=== PATIENT | female | born 1995 | race Caucasian/White ===

== ENCOUNTER 2019-04-09 14:25 | Emergency (ER) | payer MEDICAID ==
[~2019-04-09] VITALS: Ht 142.2 cm; Wt 45.4 kg
--- NOTE | 2019-04-09 14:58 | NUR ---
ED Nurse Note: Pt walked into ED w/ parents. Pt fell at 1200 today and has chin skin tear. Red, scant sanguineous drainage. Pt pain is 5/10. Pt is mentally retarded. Pt only says "ya" when asked most questions. Pt is smiling and talkative.
[2019-04-09 15:00] VITALS: BP 124/76
--- NOTE | 2019-04-09 15:38 | Emergency Room Report ---
History of Present Illness General Chief Complaint: Multiple Trauma/Fall Source: Family Member Present Illness HPI 24-year-old female with history of autism and seizures here with parents, combative, due to a deep laceration to chin after falling the street earlier today. Patient is up-to-date with tetanus shot. Patient needs sutures. I offered we can put the patient under ketamine and apply sutures however both mom and dad reported that patient will later pulled the sutures out. They asked for Dermabond even though I explained that Dermabond will not close the laceration completely. Patient to be on antibiotics. Patient can open and close jaw without any problem. Bleeding noted. No other injuries noted. Patient is not at this time. Allergies: Coded Allergies: No Known Allergies (Unverified , 04/09/19) Patient History Past Medical History: see triage record Past Surgical History: none Pertinent Family History: none Last Menstrual Period: 04/03/19 Now: No Immunizations: UTD Reviewed Nursing Documentation: PMH: Agreed; PSxH: Agreed Nursing Documentation-PMH Past Medical History: No History, Except For Hx Cardiac Problems: No - seizure disorder Review of Systems All Other Systems: negative except mentioned in HPI Physical Exam Vital Signs Date Time Temp Pulse Resp B/P (MAP) Pulse Ox O2 Delivery O2 Flow Rate FiO2 04/09/19 15:00 73 18 98 04/09/19 15:00 124/76 98 Room Air Sp02 EP Interpretation: reviewed, normal General Appearance: no apparent distress, alert, GCS 15, non-toxic Head: normocephalic, atraumatic Eyes: bilateral eye normal inspection, bilateral eye PERRL ENT: hearing grossly normal, normal pharynx, no angioedema, normal voice Neck: full range of motion, supple/symm/no masses Respiratory: chest non-tender, lungs clear, normal breath sounds, no rhonchi, no wheezing, speaking full sentences Cardiovascular #1: regular rate, rhythm, no edema Gastrointestinal: normal bowel sounds, non tender, soft, non-distended, no guarding, no rebound Rectal: deferred Musculoskeletal: back normal Neurologic: alert, oriented Psychiatric: mood/affect normal Skin: laceration - Deep laceration on chin Lymphatic: no adenopathy Procedures Laceration/Wound Repair Laceration/Wound Repair : Consent: Verbal Wound Location: face - Chin Wound's Depth, Shape: superficial Wound Length (cm): 1 Betadine Prep?: Yes Wound Repaired With: Dermabond Sterile Dressing Applied?: Yes Splint Applied?: No Sling Applied?: No Patient Tolerated: Well Complications: None Medical Decision Making PA Attestation All my diagnosis and treatment plans were reviewed ad discussed with my supervising physician Dr. Hilario Diagnostic Impression: Primary Impression: Facial laceration ER Course 24-year-old female with history of autism and seizures here with parents, combative, due to a deep laceration to chin after falling the street earlier today. Patient is up-to-date with tetanus shot. Patient needs sutures. I offered we can put the patient under ketamine and apply sutures however both mom and dad reported that patient will later pulled the sutures out. They asked for Dermabond even though I explained that Dermabond will not close the laceration completely. Patient to be on antibiotics. Patient can open and close jaw without any problem. Bleeding noted. No other injuries noted. Patient is not at this time. Ddx considered but are not limited to : Superficial laceration, deep laceration , tendon involvement with laceration, laceration with foreign body Vital signs: are WNL, pt. is afebrile H&PE are most consistent with: Deep laceration ORDERS: Keflex, ibuprofen ED INTERVENTIONS: Wound closure DISCHARGE: At this time pt. is stable for d/c to home. Will provide printed patient care instructions, and any necessary prescriptions. Care plan and follow up instructions have been discussed with the patient prior to discharge. Due to being unable parents refusing further suture placement patient follow- up primary doctor as having still open and needs further evaluation. If worsening symptoms return to the emergency room Last Vital Signs Date Time Temp Pulse Resp B/P (MAP) Pulse Ox O2 Delivery O2 Flow Rate FiO2 04/09/19 15:00 80 18 124/76 98 Room Air 04/09/19 15:00 98 Disposition: HOME, SELF-CARE Condition: Stable Scripts Ibuprofen (Children's Advil) 100 Mg/5 Ml Oral.susp 10 ML PO QID, #200 ML Prov: Malik Sweeney 04/09/19 Cephalexin* (KEFLEX*) 125 Mg/5 Ml Susp.recon 15 ML ORAL Q8HR for 10 Days, #450 ML 0 Refills Prov: Malik Sweeney 04/09/19 Patient Instructions: Facial Laceration, [id number] Additional Instructions: Take medication as directed, follow-up with your primary care provider, due to being unable to close the laceration with sutures as patient will pull the sutures out after administration reported by both mom and dad patient to take antibiotics as directed. If worsening symptoms return to the emergency room Malik Sweeney Apr 09, 2019 15:38
[2019-04-09] MEDS ORDERED: CEPHALEXIN125 MG/5 M ORAL (15:43)
[2019-04-09] MEDS ORDERED: CHILDREN'S100 MG/58 PO (15:43)
--- NOTE | 2019-04-09 15:49 | NUR ---
ER DISCHARGE NOTE: Patient is cleared to be discharged per ERMD, pt is aox4, on room air, with stable vital signs. parents were given dc and prescription instructions, pt id band removed. pt is able to ambulate with steady gait. pt took all belongings. Bandage and dermabond applied to chin.
[2019-04-09 15:51] VITALS: BP 123/71
--- NOTE | 2019-04-09 15:51 | NUR ---
ED Nurse Note: Pt cleared by health care Provider for discharge. DC instructions/prescription was given and explained to pt and verbalized understanding of teachings. All medical deviecs such as ID band removed. Pt is AAO x4, ambulatory and left with all personal belongings.
== END 2019-04-09 15:48 | disposition home or self-care (01) ==
LOC: EMR 15:40
DX: S01.81XA Laceration without foreign body of other part of head, initial encounter (principal); F84.0 Autistic disorder; G40.909 Epilepsy, unspecified, not intractable, without status epilepticus; W01.0XXA Fall on same level from slipping, tripping and stumbling without subsequent striking against object, initial encounter; Y93.9 Activity, unspecified; Y92.9 Unspecified place or not applicable
CPT/HCPCS: 12011; Z7502; 99283